=== PATIENT | male | born 1985 | race Caucasian/White ===

== ENCOUNTER 2019-12-23 10:06 | Outpatient (CLI) | payer BC, SELFPAY ==
--- NOTE | ~2019-12-23 | US_ITS ---
EXAMINATION: US thyroid EXAM DATE: 12/23/2019 10:36 INDICATION: Goiter. Nodule. TECHNIQUE: Multiple grayscale and Doppler images of the thyroid were obtained (by a technologist who performed the scan) and subsequently reviewed. Individual nodules may be reported using TI-RADS syst em as designated by the 2017 ACR White Paper TI-RADS committee. There is no prior study for comparis on. FINDINGS: The right thyroid lobe measures 5.1 x 1.7 x 1.8 cm, the left measuring 6.4 x 2.5 x 2.2 cm, measuremen ts are moderately enlarged. There is relatively homogeneous thyroid echogenicity with some scattered small thyroid nodules. There is a nodule in the lower pole of the right thyroid lobe measuring 9 x 9 x 11 millimeters, solid (2 points), hypoechoic (2 points), wider than tall, smooth margin, without echogenic foci, category TR4 for this nodule. There is a nodule in the inferolateral aspect of the left thyroid lobe measuring 1.7 x 1.2 x 1.3 cent imeters, solid (2 points), hypoechoic (2 points), wider than tall, smooth margin, containing peripher al calcification (2 points), category TR4 for this nodule. IMPRESSION: 1. Multinodular goiter. 2. Consider ultrasound-guided biopsy of the largest left thyroid lobe nodule with microcalcification . Reviewed, dictated and finalized at location B. ET ATTENDANT IMPRESSION: 1. Multinodular goiter. 2. Consider ultrasound-guided biopsy of the largest left thyroid lobe nodule w ith microcalcification.
== END 2019-12-23 10:07 | disposition home or self-care (01) ==
LOC: ANHIMG 10:13
PROVIDERS: Visit Provider Internal Medicine Endocrinology, Diabetes & Metabolism
DX: E04.2 Nontoxic multinodular goiter (principal); E11.9 Type 2 diabetes mellitus without complications
CPT/HCPCS: 76536

== ENCOUNTER 2021-02-14 14:51 | Outpatient (CLI) | payer BC, SELFPAY ==
[2021-02-14 16:20] LABS: Alanine Aminotransferase 17 U/L (4-50); Albumin Level 4.3 g/dL (3.5-5.1); Alkaline Phosphatase 63 U/L (38-126); Anion Gap 8 mmol/L (8-16); Aspartate Amino Transferase 21 U/L (17-59); Bilirubin,Total 0.6 mg/dL (0.2-1.3); Blood Urea Nitrogen 23 mg/dL (9-20); Calcium 9.4 mg/dL (8.4-10.2); Carbon Dioxide 32 mmol/L (22-30); Chloride 100 mmol/L (98-107); Cholesterol 161 mg/dL (0-200); Estimated Glomerular Filt Rate > 60; Glucose 87 mg/dL (75-110); HDL Direct 28 mg/dL; Potassium 4.3 mmol/L (3.4-5.0); Sodium 140 mmol/L (137-145); Triglycerides 216 mg/dL (<150)
[2021-02-14 16:31] LABS: LDL Cholesterol Direct 101 mg/dL
[2021-02-14 16:51] LABS: Thyroid Stimulating Hormone 0.752 uIU/mL (0.465-4.680)
[2021-02-14 18:22] LABS: Creatinine Urine 59.1 mg/dL
[2021-02-14 18:33] LABS: MALB Creatinine Ratio 403.2 mg/g (0-30); Microalbumin Urine Random 238.3 mg/L (0-16.7)
== END 2021-02-14 14:52 | disposition home or self-care (01) ==
LOC: ANHWCLAB 14:54
PROVIDERS: Referring Provider Internal Medicine Endocrinology, Diabetes & Metabolism; Visit Provider Internal Medicine Endocrinology, Diabetes & Metabolism
DX: E11.9 Type 2 diabetes mellitus without complications (principal)
CPT/HCPCS: 36415; 80053; 80061; 82043; 84443